=== PATIENT | female | born 1960 | race Hispanic/Latino ===

== ENCOUNTER 2024-03-30 18:44 | Emergency (ER) | payer BC ==
[~2024-03-30] VITALS: Ht 147.3 cm; Wt 99.8 kg
[2024-03-30 18:46] VITALS: BP 182/84; PULSE 84; RESP 16
[2024-03-30] MEDS: ORPHENADRINE 60MG/2ML IVP ONE (21:23)
[2024-03-30] MEDS: MORPHINE 2 MG SYG IVP ONE (21:24)
[2024-03-30] MEDS ORDERED: KETO10TA2 PO (22:28)
[2024-03-30] MEDS ORDERED: GABA-534 PO (22:28)
== END 2024-03-30 22:55 | disposition home or self-care (01) ==
LOC: EDH 18:44
DX: M25.551 Pain in right hip (principal); I10 Essential (primary) hypertension; E11.9 Type 2 diabetes mellitus without complications; Z90.49 Acquired absence of other specified parts of digestive tract
CPT/HCPCS: 99284; 96374; 96375; 72170; 76882; J2270; J2360